=== PATIENT | male | born 1950 | race Caucasian/White ===

== ENCOUNTER → 2024-02-04 13:58 | Outpatient (REF) | payer MEDICARE, OTHER, SELFPAY ==
[2024-02-04 15:58] LABS: PSA, Total - Diagnostic 1.09 ng/ml (0.0-4.0)
== END ==
LOC: REG 13:58
PROVIDERS: ATTENDING PHYSICIAN Specialist; FAMILY PHYSICIAN Family Medicine
DX: C61 Malignant neoplasm of prostate (principal)
CPT/HCPCS: 36415; 84153

== ENCOUNTER → 2024-06-20 14:19 | Outpatient (REF) | payer MEDICARE, OTHER, SELFPAY | LOC: RAD 14:19 | PROVIDERS: ATTENDING PHYSICIAN Ophthalmology; FAMILY PHYSICIAN Family Medicine | DX: G45.3 Amaurosis fugax (principal); H40.013 Open angle with borderline findings, low risk, bilateral; H43.813 Vitreous degeneration, bilateral; H26.493 Other secondary cataract, bilateral; H04.123 Dry eye syndrome of bilateral lacrimal glands | CPT/HCPCS: 93880 ==

== ENCOUNTER → 2024-09-15 10:29 | Outpatient (REF) | payer MEDICARE, OTHER, SELFPAY | LOC: REG 10:29 | PROVIDERS: ATTENDING PHYSICIAN Family Medicine Geriatric Medicine; FAMILY PHYSICIAN Family Medicine; OTHER PHYSICIAN Radiology Radiation Oncology | DX: C61 Malignant neoplasm of prostate (principal) | CPT/HCPCS: 36415; 84153 ==

== ENCOUNTER → 2025-03-08 12:58 | Outpatient (REF) | payer MEDICARE, OTHER, SELFPAY ==
[2025-03-08 14:30] LABS: PSA, Total - Diagnostic 0.93 ng/ml (0.0-4.0)
== END ==
LOC: REG 12:58
PROVIDERS: ATTENDING PHYSICIAN Specialist; FAMILY PHYSICIAN Family Medicine
DX: C61 Malignant neoplasm of prostate (principal)
CPT/HCPCS: 36415; 84153

== ENCOUNTER → 2025-08-10 13:49 | Outpatient (REF) | payer MEDICARE, OTHER, SELFPAY ==
[2025-08-10 16:12] LABS: PSA, Total - Diagnostic 1.01 ng/ml (0.0-4.0)
== END ==
LOC: REG 13:49
PROVIDERS: ATTENDING PHYSICIAN Family Medicine Geriatric Medicine; FAMILY PHYSICIAN Family Medicine
DX: C61 Malignant neoplasm of prostate (principal)
CPT/HCPCS: 36415; 84153